=== PATIENT | male | born 1955 | race African-American/Black ===

== ENCOUNTER 2025-11-08 13:14 | Emergency (ER) | payer MEDICARE ==
[~2025-11-08] VITALS: Wt 73.5 kg
[2025-11-08] MEDS ORDERED: VIBRAMYCIN100 MG PO (14:09)
[2025-11-08] MEDS ORDERED: AZITHROMYCIN 250 MG TAB PO ONE (14:10)
[2025-11-08 14:52] LABS: BILIRUBIN Negative (Negative); BLOOD Negative (Negative); CLARITY Clear (Clear); COLOR Yellow (Yellow); KETONE Negative (Negative); LEUKO ESTERASE Negative (Negative); NITRITE Negative (Negative); PH 6.0 (4.5-8.0); SPECIFIC GRAVITY 1.025 (1.001-1.030); UROBILINOGEN 1.0 E.U./dl (0.0-1.0)
[2025-11-08 15:28] LABS: BACTERIA TRACE; EPITHELIAL CELLS 0-2
== END 2025-11-08 14:38 | disposition home or self-care (01) ==
LOC: ED 13:14
PROVIDERS: Nurse Practitioner Family
DX: R30.9 Painful micturition, unspecified (principal); R36.9 Urethral discharge, unspecified; Z20.2 Contact with and (suspected) exposure to infections with a predominantly sexual mode of transmission